=== PATIENT | male | born 1975 | race Caucasian/White ===

== ENCOUNTER 2020-09-05 12:53 | Emergency (ER) | payer OTHER | END 2020-09-05 14:36 | disposition home or self-care (01) | LOC: JVIRT 12:53 | DX: Z11.52 Encounter for screening for COVID-19 (principal) | CPT/HCPCS: C9803; G2012-GT; U0003 ==

== ENCOUNTER 2021-07-12 13:14 | Emergency (ER) | payer OTHER ==
[2021-07-12] MEDS ORDERED: ACETAMINOPHEN 1000 MG/100 ML VIAL IVPB ONE (13:41)
[2021-07-12] MEDS ORDERED: ACETAMINOPHEN INJECTION 100 ML IVPB ONE (14:04)
[2021-07-12 14:07] VITALS: BP 126/82; PULSE 59; TEMP 98.9; BMI 31.9
[2021-07-12 14:36] LABS: WHITE BLOOD COUNT 7.2 K/mm3 (4.0-10.8)
[2021-07-12 14:39] LABS: HEMATOCRIT 48.6 % (35.4-49); HEMOGLOBIN 16.6 GM/dl (11.7-16.9); MCH 30.2 pg (25.7-33.7); MCHC 34.2 g/dl (32.0-35.9); MEAN CELL VOLUME 88.3 fl (80-96); MEAN PLT VOLUME 7.6 fl (7.5-11.1); PLATELET COUNT 274 10^3/uL (134-434); RDW 11.9 % (11.9-15.9)
[2021-07-12 14:42] LABS: ALBUMIN 4.2 g/dl (3.4-5.0); BILIRUBIN,TOTAL 1.3 mg/dl (0.2-1); CALCIUM 9.4 mg/dl (8.5-10); CREATININE 0.8 mg/dl (0.55-1.3); TOT PROT 7.6 g/dl (6.4-8.2)
[2021-07-12 15:16] LABS: PLATELET ESTIMATE ADEQUATE
== END 2021-07-12 16:54 | disposition home or self-care (01) ==
LOC: FER 13:14
PROC: 3E0333Z Introduction of Anti-inflammatory into Peripheral Vein, Percutaneous Approach (ICD-10-PCS; principal; 2021-07-12)
DX: R10.32 Left lower quadrant pain (principal)
CPT/HCPCS: 36415; 74177-TC; 80053; 81003; 85025; 87086; 96374; 99285-25; J0131; Q9967